=== PATIENT | female | born 1985 | race American Indian/Alaskan Native ===

== ENCOUNTER 2020-06-27 09:31 | Emergency (ER) | payer SELFPAY ==
[2020-06-27 10:36] VITALS: BP 141/84
--- NOTE | 2020-06-27 10:40 | Emergency Department Report ---
ED Lower Extremity HPI - General Chief Complaint: Extremity Injury, Lower Stated Complaint: LEFT ANKLE PAIN Time Seen by Provider: 06/27/20 10:31 Source: patient Mode of arrival: Ambulatory Limitations: No Limitations - History of Present Illness Initial Comments: This is a 34-year-old female nontoxic, well nourished in appearance, no acute signs of distress presents to the ED with c/o of left ankle pain. Patient stated had she twisted it 3 days ago. Patient denies any new trauma or injuries. Denies decreased ROM, joint swelling, redness, or abnormal gait. Denies any fever, chills, nausea, vomiting, headache, stiff neck, chest pain or shortness of breath. Patient denies any numbness or tingling. Denies any allergies. MD Complaint: ankle injury -: days(s) Injury: Ankle: Left Place: street/outdoors Severity: mild Severity scale (0 -10): 8 Improves With: immobilization Worsens With: weight bearing, movement, palpation Associated Symptoms: swelling, ambulatory. denies: snap/pop sensation, numbness, tingling, unable to bear weight, able to partially bear weight - Related Data Previous Rx's Medication Instructions Recorded Last Taken Type Naproxen 500 mg PO Q12H PRN #12 tablet 06/27/20 Unknown Rx Allergies Allergy/AdvReac Type Severity Reaction Status Date / Time No Known Allergies Allergy Verified 06/27/20 09:56 ED Review of Systems ROS: Stated complaint: LEFT ANKLE PAIN Other details as noted in HPI Constitutional: denies: chills, fever Eyes: denies: eye pain, eye discharge, vision change ENT: denies: ear pain, throat pain Respiratory: denies: cough, shortness of breath, wheezing Cardiovascular: denies: chest pain, palpitations Endocrine: no symptoms reported Gastrointestinal: denies: abdominal pain, nausea, diarrhea Genitourinary: denies: urgency, dysuria, discharge Musculoskeletal: denies: back pain, joint swelling, arthralgia Skin: denies: rash, lesions Neurological: denies: headache, weakness, paresthesias Psychiatric: denies: anxiety, depression Hematological/Lymphatic: denies: easy bleeding, easy bruising ED Past Medical Hx - Past Medical History Previous Medical History?: No - Surgical History Past Surgical History?: No - Social History Smoking Status: Never Smoker Substance Use Type: None - Medications Home Medications: Home Medications Medication Instructions Recorded Confirmed Last Taken Type Naproxen 500 mg PO Q12H PRN #12 tablet 06/27/20 Unknown Rx ED Physical Exam - General Limitations: No Limitations General appearance: alert, in no apparent distress - Head Head exam: Present: atraumatic, normocephalic - Neck Neck exam: Present: normal inspection, full ROM. Absent: tenderness, meningismus, lymphadenopathy - Extremities Exam Extremities exam: Present: full ROM, tenderness, normal capillary refill. Absent: joint swelling, calf tenderness - Expanded Lower Extremity Exam Left Hip exam: Present: normal inspection, full ROM. Absent: tenderness, swelling Upper Leg exam: Present: normal inspection, full ROM. Absent: tenderness, swelling Knee exam: Present: normal inspection, full ROM. Absent: tenderness, swelling Lower Leg exam: Present: normal inspection, full ROM. Absent: tenderness, swelling Ankle exam: Present: full ROM, tenderness, swelling. Absent: abrasion, laceration, ecchymosis, deformity, crepidus, dislocation, erythema, anterior draw sign Foot/Toe exam: Present: normal inspection, full ROM. Absent: tenderness, swelling Neuro vascular tendon exam: Present: no vascular compromise Gait: Positive: observed and limited by pain - Back Exam Back exam: Present: normal inspection, full ROM. Absent: tenderness, CVA tenderness (R), CVA tenderness (L), muscle spasm, paraspinal tenderness, vertebral tenderness, rash noted - Neurological Exam Neurological exam: Present: alert, oriented X3 - Psychiatric Psychiatric exam: Present: normal affect, normal mood - Skin Skin exam: Present: warm, dry, intact, normal color. Absent: rash ED Course Vital Signs 06/27/20 10:36 Temperature 98.1 F Pulse Rate 78 Respiratory 18 Rate Blood Pressure 141/84 [Right] O2 Sat by Pulse 99 Oximetry Vital Signs 06/27/20 10:36 Temperature 98.1 F Pulse Rate 78 Respiratory 18 Rate Blood Pressure 141/84 [Right] O2 Sat by Pulse 99 Oximetry - Reevaluation(s) Reevaluation #1: 06/27/20 10:38 Patient is speaking in full sentenes with no signs of distress noted. ED Lower Extremity MDM - Radiology Data Referring Physician: VERO CROW Patient Name: MONSE SANTANA Date of : 1985 Sex: Female Report Date: 2020-06-27 Report Status: Finalized [facility] [address] [place] [address] XRay Report Signed Patient: MONSE SANTANA MR#: [id number] : 1985 Acct:[id number] Age/Sex: 34 / F ADM Date: 06/27/20 Loc: ED Attending Dr: Ordering Physician: VERO CROW Date of Service: 06/27/20 Procedure(s): XR ankle 3+V LT Accession Number(s): [id number] cc: VERO CROW Fluoro Time In Minutes: LEFT ANKLE 3 VIEWS INDICATION: Left ankle pain after injury. COMPARISON: No relevant prior imaging study available. FINDINGS: On the lateral view, there is a thin curvilinear 5 mm density posterior to the tibiotalar articulation. This is not seen on the AP or oblique views. This could be a small avulsion fracture fragment in the posterior joint space, correlate with point tenderness. There is mild diffuse soft tissue swelling. Mild enthesopathic changes are seen at the calcaneus. IMPRESSION: 1. Questionable tiny avulsion fracture at the posterior tibiotalar joint, as above. This curvilinear density could also be vascular. 2. Soft tissue swelling diffusely. There is no ankle mortise widening. Signer Name: Alfredito Vo MD Signed: 06/27/2020 10:55 AM Workstation Name: [id number] Transcribed By: Dictated By: Alfredito Vo MD Electronically Authenticated By: Alfredito Vo MD Signed Date/Time: 06/27/20 1055 DD/ 1052 TD/TT: - Medical Decision Making This is a 34-year-old female that presents with left ankle fracture. Patient is stable and was examined by me. Pt is notified of the xray results with no questions noted by the pt. Patient received posterior ankle splint and crutches. Educated by RN how to use crutches and instructe to RICE therapy. Post splint: neurovascular intact with normal cap refill <2 seconds. Patient was instructed to Follow-up with a orthopedic doctor in 3-5 days or if symptoms worsen and continue return to emergency room as soon as possible. At time of discharge, the patient does not seem toxic or ill in appearance. No acute signs of distress noted. Patient agrees to discharge treatment plan of care. No further questions noted by the patient. Critical care attestation.: If time is entered above; I have spent that time in minutes in the direct care of this critically ill patient, excluding procedure time. ED Disposition Clinical Impression: Closed left ankle fracture Qualifiers: Encounter type: initial encounter Qualified Code(s): S82.892A - Other fracture of left lower leg, initial encounter for closed fracture Disposition: DC- TO HOME OR SELFCARE Is pt being admited?: No Does the pt Need Aspirin: No Condition: Stable Instructions: RICE Therapy (ED), Splint Care (ED), Crutch Instructions (ED) Additional Instructions: Follow-up with a orthopedic doctor in 3-5 days or if symptoms worsen and continue return to emergency room as soon as possible. No physical activity until cleared by orthopedic doctor. Prescriptions: Naproxen 500 mg PO Q12H PRN #12 tablet PRN Reason: Pain , Severe (7-10) Referrals: PRIMARY MD ALAN [Primary Care Provider] - 3-5 Days AUTUMN MOODY MD [Staff Physician] - 3-5 Days Forms: Work/School Release Form(ED)
--- NOTE | 2020-06-27 10:59 | XRay Report ---
LEFT ANKLE 3 VIEWS INDICATION: Left ankle pain after injury. COMPARISON: No relevant prior imaging study available. FINDINGS: On the lateral view, there is a thin curvilinear 5 mm density posterior to the tibiotalar articulatio n. This is not seen on the AP or oblique views. This could be a small avulsion fracture fragment in t he posterior joint space, correlate with point tenderness. There is mild diffuse soft tissue swelling. Mild enthesopathic changes are seen at the calcaneus. IMPRESSION: 1. Questionable tiny avulsion fracture at the posterior tibiotalar joint, as above. This curvilinear density could also be vascular. 2. Soft tissue swelling diffusely. There is no ankle mortise widening. Signer Name: Alfredito Vo MD Signed: 06/27/2020 10:55 AM Workstation Name: [id number]
== END 2020-06-27 11:35 | disposition home or self-care (01) ==
LOC: ED 09:31
DX: S82.892A Other fracture of left lower leg, initial encounter for closed fracture (principal); X50.9XXA Other and unspecified overexertion or strenuous movements or postures, initial encounter; Y93.89 Activity, other specified; Y92.89 Other specified places as the place of occurrence of the external cause; Y99.8 Other external cause status
CPT/HCPCS: 99283